=== PATIENT | male | born 1990 | race Caucasian/White ===

== ENCOUNTER 2024-10-07 18:45 | Inpatient (IN) ==
[2024-10-07 19:24] LABS: Venous Bicarbonate HCO3 25.3 mmol/L (24-28)
[2024-10-07 19:30] LABS: ABS Basophils 0.1 10^3/uL (0.0-0.1); ABS Lymphocytes 0.8 10^3/uL (1.0-4.8); ABS Monocytes 0.5 10^3/uL (0.0-1.1); ABS Neutrophils 13.4 10^3/uL (1.5-7.6); Eosinophil % 0.2 %; Hemoglobin 15.5 g/dL (13.2-16.3); Lymphocyte % 5.7 %; Mean Corpuscular Hemoglobin 27.6 pg (27-33); Mean Corpuscular Hgb Conc 33.6 g/dL (31-36); Mean Corpuscular Volume 82.1 fL (80-97); Mean Platelet Volume 8.9 fL (7.5-11.2); Platelet Count 335 10^3/uL (150-450); Red Blood Count 5.61 10^6/uL (4.06-5.63); Red Cell Distribution Width 15.7 % (12-17); White Blood Count 14.8 10^3/uL (3.6-10.2)
[2024-10-07] MEDS: NS 0.9% 1000 ml BAG 1,000 ML IV ONE (19:47)
[2024-10-07 20:16] LABS: ALT 51 U/L (7-52); AST 53 U/L (13-39); Acetaminophen < 15 mcg/mL; Albumin 4.9 g/dL (3.2-5.2); Albumin/Globulin Ratio 1.6 (1-3); Alcohol, S < 13 mg/dL (<13); Alkaline Phosphatase 95 U/L (35-149); Anion Gap 11 mmol/L (2-16); Blood Urea Nitrogen 15 mg/dL (6-24); CO2 Carbon Dioxide 28 mmol/L (22-32); Calcium 9.4 mg/dL (8.6-10.3); Chloride 97 mmol/L (101-111); Creatine Kinase 620 U/L (10-223); Creatinine, Serum 1.42 mg/dL (0.67-1.17); Glucose 234 mg/dL (70-100); Potassium 4.1 mmol/L (3.5-5.0); Salicylate < 2.50 mg/dL (<30); Sodium 136 mmol/L (135-145); Total Bilirubin 0.8 mg/dL (0.2-1.0); Total Protein 7.9 g/dL (6.4-8.9); eGFR CKD-EPI 67.7 (>60)
[2024-10-07] MEDS ORDERED: Albuterol/Ipratropium NEB.SOL (2.5/0.5 MG) 3 ML NEB.SOLN ONE (20:35)
[2024-10-07] MEDS: Albuterol/Ipratropium NEB.SOL (2.5/0.5 MG) 3 ML NEB.SOLN INH SCH (20:41)
[2024-10-07] MEDS: Ondansetron 4 mg VIAL 2 MG/ML 2 ml VIAL IV ONE (20:47)
[2024-10-07] MEDS: Dexamethasone IV 4 MG/ML VIAL 1 ml VIAL IV SLOW PU ONE (20:50)
[2024-10-07 20:52] LABS: Urine Appearance Clear; Urine Bacteria Absent /HPF (Absent); Urine Bilirubin Negative (Negative); Urine Blood 2+ (Negative); Urine Color Light-Yellow; Urine Glucose 4+ (>=1000 mg/dL) (Negative); Urine Ketones Negative (Negative); Urine Nitrite Negative (Negative); Urine Protein 1+ (>=30 mg/dL) (Negative); Urine Red Blood Cell 1+(3-5/hpf) /HPF (0-Trace); Urine Sperm Present /HPF (Absent); Urine Squamous Epithelial Cell Present /HPF (Absent); Urine Urobilinogen Negative (Negative); Urine White Blood Cell Trace(0-5/hpf) /HPF (0-Trace); Urine pH 5.5 (5.0-8.0)
[2024-10-07 21:17] LABS: Urine Benzodiazepine Screen Presumptive Positive (None Detect); Urine Cannabinoids Screen Presumptive Positive (None Detect); Urine Opiates Screen Presumptive Positive (None Detect)
[2024-10-07] MEDS: Nicotine PATCH 21 MG/24 HR PATCH TRANSDERM ONE (22:13)
[2024-10-07 23:05] LABS: Cholesterol 165 mg/dL; HDL Cholesterol 31.8 mg/dL; Triglycerides 469 mg/dL
[2024-10-07 23:21] LABS: LDL Cholesterol Direct 51 mg/dL
[2024-10-07 23:28] LABS: Venous Bicarbonate HCO3 27.4 mmol/L (24-28)
[2024-10-08] MEDS: cefTRIAXone 1 gm/50 mL D5W 1 GM/50 ML BAG IV SCH (01:37)
[2024-10-08] MEDS ORDERED: Dextrose 50% Syringe 50 ml 25 GM/50 ML SYRINGE IV PUSH PRN (02:51)
[2024-10-08] MEDS ORDERED: Albuterol/Ipratropium NEB.SOL (2.5/0.5 MG) 3 ML NEB.SOLN INH PRN (03:08)
[2024-10-08] MEDS ORDERED: Albuterol 2.5mg/3 ml (0.083%) NEB.SOLN INH PRN (03:19)
[2024-10-08] MEDS: Albuterol (2.5 MG) 0.5 % CONC 0.5 ML NEB.SOLN INH ONE (03:40)
[2024-10-08] MEDS: Enoxaparin 40 MG/0.4 ML SYR SUBCUT SCH (03:59)
[2024-10-08] MEDS: Iodixanol 320 (CONTRAST) 100 ML SDV IV ONE (05:01)
[2024-10-08 06:20] LABS: Hematocrit 40.5 % (38-53); Hemoglobin 13.3 g/dL (13.2-16.3); Mean Corpuscular Hemoglobin 27.1 pg (27-33); Mean Corpuscular Hgb Conc 32.8 g/dL (31-36); Mean Corpuscular Volume 82.6 fL (80-97); Mean Platelet Volume 8.8 fL (7.5-11.2); Platelet Count 221 10^3/uL (150-450); Red Cell Distribution Width 15.6 % (12-17)
[2024-10-08 06:40] LABS: Anion Gap 8 mmol/L (2-16); Blood Urea Nitrogen 16 mg/dL (6-24); CO2 Carbon Dioxide 26 mmol/L (22-32); Calcium 8.8 mg/dL (8.6-10.3); Chloride 101 mmol/L (101-111); Creatinine, Serum 0.98 mg/dL (0.67-1.17); Glucose 303 mg/dL (70-100); Potassium 4.5 mmol/L (3.5-5.0); Sodium 135 mmol/L (135-145); eGFR CKD-EPI 105.7 (>60)
[2024-10-08 06:42] LABS: Magnesium 2.2 mg/dL (1.9-2.7)
[2024-10-08 06:56] LABS: Creatine Kinase 2544 U/L (10-223)
[2024-10-08 07:19] LABS: ABS Lymphocytes 0.4 10^3/uL (1.0-4.8); ABS Monocytes 0.3 10^3/uL (0.0-1.1); ABS Neutrophils 18.9 10^3/uL (1.5-7.6); Lymphocyte % 1.8 %; White Blood Count 19.7 10^3/uL (3.6-10.2)
[2024-10-08] MEDS: NS 0.9% 1000 ml BAG 1,000 ML IV SCH (13:24)
[2024-10-08 13:50] LABS: Folate > 20.00 ng/mL (5.90-24.80)
[2024-10-08 13:51] LABS: Vitamin B12 583 pg/mL (180-914)
[2024-10-08] MEDS: Iohexol 350 (CONTRAST) 500 ML MDV IV ONE (16:38)
[2024-10-09] MEDS: cefTRIAXone 1 gm/50 mL D5W 1 GM/50 ML BAG IV SCH (00:56)
[2024-10-09 06:05] LABS: ABS Lymphocytes 1.1 10^3/uL (1.0-4.8); ABS Monocytes 0.6 10^3/uL (0.0-1.1); ABS Neutrophils 11.7 10^3/uL (1.5-7.6); Eosinophil % 0.1 %; Hematocrit 38.1 % (38-53); Hemoglobin 12.7 g/dL (13.2-16.3); Mean Corpuscular Hemoglobin 27.7 pg (27-33); Mean Corpuscular Hgb Conc 33.3 g/dL (31-36); Mean Platelet Volume 9.4 fL (7.5-11.2); Platelet Count 217 10^3/uL (150-450); Red Blood Count 4.59 10^6/uL (4.06-5.63); Red Cell Distribution Width 15.6 % (12-17); White Blood Count 13.4 10^3/uL (3.6-10.2)
[2024-10-09 06:18] LABS: Creatinine, Serum 0.71 mg/dL (0.67-1.17); Magnesium 2.1 mg/dL (1.9-2.7); Potassium 4.3 mmol/L (3.5-5.0); eGFR CKD-EPI 125.8 (>60)
[2024-10-09 06:23] LABS: CKMB ng/mL 70.9 ng/mL (0.6-6.3)
[2024-10-09] MEDS: NS 0.9% 1000 ml BAG 1,000 ML IV SCH (09:18)
[2024-10-10 07:52] LABS: ABS Basophils 0.1 10^3/uL (0.0-0.1); ABS Eosinophils 0.1 10^3/uL (0.0-0.5); ABS Lymphocytes 1.8 10^3/uL (1.0-4.8); ABS Monocytes 0.5 10^3/uL (0.0-1.1); ABS Neutrophils 7.1 10^3/uL (1.5-7.6); Eosinophil % 0.8 %; Hematocrit 36.9 % (38-53); Hemoglobin 12.7 g/dL (13.2-16.3); Lymphocyte % 18.7 %; Mean Corpuscular Hemoglobin 28.6 pg (27-33); Mean Corpuscular Hgb Conc 34.5 g/dL (31-36); Mean Corpuscular Volume 82.9 fL (80-97); Mean Platelet Volume 8.7 fL (7.5-11.2); Platelet Count 194 10^3/uL (150-450); Red Blood Count 4.45 10^6/uL (4.06-5.63); Red Cell Distribution Width 15.4 % (12-17); White Blood Count 9.6 10^3/uL (3.6-10.2)
[2024-10-10 09:02] LABS: Calcium 8.4 mg/dL (8.6-10.3); Creatinine, Serum 0.78 mg/dL (0.67-1.17); Potassium 3.7 mmol/L (3.5-5.0); eGFR CKD-EPI 122.3 (>60)
[2024-10-10] MEDS ORDERED: Nicotine GUM 4MG FRUIT FLAVOR PO PRN (15:43)
[2024-10-10] MEDS: Empagliflozin 25 MG TAB PO SCH (19:14)
[2024-10-10] MEDS: Nicotine PATCH 14 MG/24 HR PATCH TRANSDERM SCH (19:50)
[2024-10-10] MEDS: Insulin GLARGINE 100 un/ml 10 ml VIAL SUBCUT SCH (20:11)
[2024-10-11 06:20] LABS: ABS Basophils 0.1 10^3/uL (0.0-0.1); ABS Eosinophils 0.1 10^3/uL (0.0-0.5); ABS Lymphocytes 1.7 10^3/uL (1.0-4.8); ABS Monocytes 0.4 10^3/uL (0.0-1.1); ABS Neutrophils 7.3 10^3/uL (1.5-7.6); Hematocrit 38.2 % (38-53); Lymphocyte % 17.8 %; Mean Corpuscular Hemoglobin 28.2 pg (27-33); Mean Corpuscular Hgb Conc 34.1 g/dL (31-36); Mean Corpuscular Volume 82.5 fL (80-97); Mean Platelet Volume 8.7 fL (7.5-11.2); Platelet Count 210 10^3/uL (150-450); Red Blood Count 4.63 10^6/uL (4.06-5.63); Red Cell Distribution Width 15.6 % (12-17); White Blood Count 9.6 10^3/uL (3.6-10.2)
[2024-10-11 06:35] LABS: Calcium 8.5 mg/dL (8.6-10.3); Creatinine, Serum 0.81 mg/dL (0.67-1.17); Magnesium 1.7 mg/dL (1.9-2.7); Potassium 3.4 mmol/L (3.5-5.0); eGFR CKD-EPI 120.9 (>60)
[2024-10-11] MEDS: Magnesium Sulfate 2 gm BAG 2 GM/50 ML BAG IVPB ONE (08:27)
[2024-10-11] MEDS: Magnesium Sulfate IV 1GM/100ML 1 GM/100 ML BAG IV ONE (09:59)
[2024-10-11 14:42] VITALS: BP 138/84
== END 2024-10-11 15:25 | disposition home or self-care (01) | DRG 917 ==
LOC: ED 18:45 → SUATTDRO 10-08 02:48 → EDHOLD 10-08 02:48 → MEDTELE 10-08 14:49
PROVIDERS: ADMIT Internal Medicine; ATTEND Student in an Organized Health Care Education/Training Program